=== PATIENT | male | born 1955 | race Caucasian/White ===

== ENCOUNTER → 2017-04-03 | Outpatient (CLI) | payer BC ==
[~2017-04-03] MED LIST: ASPIRIN 81MG TA81 MG; DYAZIDE CAP (M1 EACH; FISH OIL1000 MG PO; IBUPROFEN800 MG PO; KEFLEX 500MG.500 MG PO; LIPITOR10 MG PO; LISINOPRIL 20MG20 MG PO; METOPROLOL 25 M25 MG PO; NATURE'S BLE1000 MCG PO; OSTEO BI-FLEX1 EAC1 PO; VITAMIN D31000 IU PO
--- NOTE | 2017-04-03 15:46 | RADIOLOGY REPORT PS360 ---
CHEST(2 VIEWS-NOT PORTABLE) HISTORY: HTN ORDERING PHYSICIAN: Gary Hood MD PATIENT AGE: 61 years COMPARISON: None available FINDINGS: The cardiomediastinal silhouette and pulmonary vascularity are within normal limits. Well-circumscribed nodular opacity is noted overlying the left lower lobe sixth interspace and could be due to a nipple shadow. This measures 6 mm. The remaining lungs are clear. There is ankylosis of the thoracic spine. IMPRESSION: 1. No acute finding. 2. 6 mm nodular opacity left lower lung zone possibly related to nipple shadow. Follow may confirm stability
== END ==
LOC: RAD 15:02
DX: Z01.818 Encounter for other preprocedural examination (principal)